=== PATIENT | male | born 1965 | race Caucasian/White ===

== ENCOUNTER 2021-06-24 11:11 | Emergency (ER) | payer SELFPAY ==
[~2021-06-24] VITALS: Ht 172.7 cm; Wt 63.6 kg
[2021-06-24] MEDS ORDERED: morphine 4 MG/ML inj SYRINge IV ONE (11:35)
[2021-06-24] MEDS ORDERED: HYDROmorphone 1 mg/ml syringe IV ONE ×3 (11:40→12:45)
[2021-06-24 11:42] LABS: BASOPHILS % (AUTO) 0.4 % (0-1); EOSINOPHILS # (AUTO) 0.1 X10'3 (0-0.9); EOSINOPHILS % (AUTO) 3.1 % (0-6); HEMATOCRIT 28.3 % (42.0-52.0); HEMOGLOBIN 9.1 g/dl (14.0-17.9); LYMPHOCYTES # (AUTO) 0.4 X10'3 (1.1-4.8); LYMPHOCYTES % (AUTO) 15.2 % (21-51); MEAN CORPUSCULAR HEMOGLOBIN 28.8 PG (27.0-31.0); MEAN CORPUSCULAR HGB CONC 32.3 g/dL (33.0-36.5); MEAN CORPUSCULAR VOLUME 89.2 FL (78-98); MONOCYTES # (AUTO) 0.5 X10'3 (0-0.9); NEUTROPHILS # (AUTO) 1.4 X10'3 (1.8-7.7); NEUTROPHILS % (AUTO) 58.3 % (42-75); PLATELET COUNT 184 X10'3 (140-440); RED BLOOD COUNT 3.17 X10'6 (4.70-6.10); RED CELL DISTRIBUTION WIDTH 22.1 % (11.5-14.5); WHITE BLOOD COUNT 2.4 X10'3 (4.5-11.0)
[2021-06-24 11:46] VITALS: BP 116/84
[2021-06-24 11:57] LABS: APTT 26 SECONDS (22-32)
[2021-06-24 11:58] LABS: ANISOCYTOSIS 3+; PLATELET ESTIMATE NORMAL; TOTAL CELLS COUNTED 100
[2021-06-24 11:59] LABS: ALANINE AMINOTRANSFERASE 31 U/L (12-78); ALBUMIN 3.4 G/DL (3.4-5.0); ALBUMIN/GLOBULIN RATIO 1.1 (1.1-1.5); ALKALINE PHOSPHATASE 72 IU/L (46-116); ANION GAP 9 (8-16); ASPARTATE AMINO TRANSFERASE 23 U/L (10-37); BILIRUBIN,TOTAL 0.4 MG/DL (0.1-1.0); BLOOD UREA NITROGEN 10 MG/DL (7-18); BUN/CREATININE RATIO 11.2 (5.4-32.0); CALCIUM 8.2 MG/DL (8.5-10.1); CHLORIDE 109 MMOL/L (99-107); CREATININE 0.89 MG/DL (0.60-1.10); GLUCOSE 91 MG/DL (70-104); POTASSIUM 4.3 MMOL/L (3.5-5.1); SODIUM 141 MMOL/L (135-145); TARGET CELLS FEW; TOTAL PROTEIN 6.4 G/DL (6.4-8.2); eGFR 89 ML/MIN
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
[2021-06-24] MEDS ORDERED: haloperidol lactate 5mg/ml inj IM ONE (12:50)
[2021-06-24] MEDS ORDERED: LORazepam 2 mg/ml vial IV ONE (12:55)
--- NOTE | 2021-06-24 13:02 | NUR ---
18 gauge IV disconitinued catherter intact.
--- NOTE | 2021-06-24 13:03 | NUR ---
patient AMA escorted out by security.
== END 2021-06-24 13:03 | disposition left against medical advice (07) ==
LOC: ER 11:12
DX: R29.810 Facial weakness (principal); R47.81 Slurred speech; F17.200 Nicotine dependence, unspecified, uncomplicated
CPT/HCPCS: 70450; 70544; 71045; 74176; 80053; 82948; 85007; 85025; 85610; 85730; 93005; 96372; 96374; 99285; J1170; J1630